=== PATIENT | female | born 1985 | race Two or more races ===

== ENCOUNTER 2017-04-26 19:44 | Emergency (ER) | payer OTHER ==
[2017-04-26 19:58] VITALS: BP 131/86; PULSE 91; TEMP 97.9; BMI 30.2
--- NOTE | 2017-04-26 22:30 | PDOC ---
History of Present Illness - General History Source: Patient Exam Limitations: No Limitations <Adalberto Ruiz - Last Filed: 04/26/17 22:43> <Josephine Lew - Last Filed: 04/26/17 23:57> - General Chief Complaint: Chest Pain Stated Complaint: ANXIETY Time Seen by Provider: 04/26/17 21:54 - History of Present Illness Initial Comments: 04/26/17 22:37 The patient is a 32 year old female, with no significant past medical history who presents to the emergency department with persistent chest pain/tightness, itchiness and headache since last night around 11:00 pm. She reports finishing a course of antibiotics and had some pruritus. Denies any angioedema and denies any obvious hives. She denies eating any new foods, using new body lotions, or using any new perfumes. She reports starting her course of antibiotics after using alum on her vagina and having some residual burning. She reports her chest tightness and headache had an acute onset while in the car last night. She notes her headache was a 9/10 in pain intensity at the time of its original onset. She notes report taking an Aleve before going to bed, but reports the next morning waking up with continued chest tightness and headaches. She denies recent fevers, chills, or dizziness. She denies recent nausea, vomit, diarrhea or constipation. She denies recent dysuria, frequency, urgency or hematuria. She denies recent shortness of breath. Allergies: NKA Past surgical history: Tubal Ligation Social history: Nonsmoker. Denies EtOH use and recreational drug use. (Adalberto Ruiz) Past History <Adalberto Ruiz - Last Filed: 04/26/17 22:43> - Past Medical History Anemia: No Asthma: No Cancer: No Cardiac Disorders: No CVA: No COPD: No CHF: No Dementia: No Diabetes: No GI Disorders: No Disorders: No HTN: No Hypercholesterolemia: No Liver Disease: No Psychiatric Problems: Yes (anxiety) Seizures: No Thyroid Disease: No - Suicide/Smoking/Psychosocial Hx Smoking History: Never smoked Have you smoked in the past 12 months: No Information on smoking cessation initiated: No Hx Alcohol Use: No Drug/Substance Use Hx: No Substance Use Type: None Hx Substance Use Treatment: No <Josephine Lew - Last Filed: 04/26/17 23:57> - Past Medical History Allergies/Adverse Reactions: Allergies Allergy/AdvReac Type Severity Reaction Status Date / Time No Known Drug Allergies Allergy Verified 11/14/13 13:00 Home Medications: Ambulatory Orders Isoniazid 300 mg PO DAILY 10/26/13 Pyridoxine HCl (Vitamin B6) [Pyridoxine HCl] 100 mg PO DAILY 10/27/13 Ibuprofen [Motrin -] 600 mg PO Q4H PRN #60 tablet 11/15/13 Cardiac Specific PMH - Complaint Specific PMHX Pacemaker: No <Josephine Lew - Last Filed: 04/26/17 23:57> Review of Systems - Review of Systems Able to Perform ROS?: Yes <Adalberto Ruiz - Last Filed: 04/26/17 22:43> <Josephine Lew - Last Filed: 04/26/17 23:57> - Review of Systems Comments:: 04/26/17 22:37 GENERAL/CONSTITUTIONAL: No fever or chills. No weakness. HEAD, EYES, EARS, NOSE AND THROAT: No change in vision. No ear pain or discharge. No sore throat. CARDIOVASCULAR: +chest pain No shortness of breath. RESPIRATORY: No cough, wheezing, or hemoptysis. GASTROINTESTINAL: No nausea, vomiting, diarrhea or constipation. GENITOURINARY: +vaginal burning (on antibiotics) No dysuria, frequency, or change in urination. MUSCULOSKELETAL: No joint or muscle swelling or pain. No neck or back pain. SKIN:+pruritus. No rash NEUROLOGIC: +headache No: vertigo, loss of consciousness, or change in strength/ sensation. ENDOCRINE: No increased thirst. No abnormal weight change. HEMATOLOGIC/LYMPHATIC: No anemia, easy bleeding, or history of blood clots. ALLERGIC/IMMUNOLOGIC: No hives or skin allergy. (Adalberto Ruiz) *Physical Exam <Adalberto Ruiz - Last Filed: 04/26/17 22:43> <Josephine Lew - Last Filed: 04/26/17 23:57> - Vital Signs Last Vital Signs Temp Pulse Resp BP Pulse Ox 97.9 F 91 H 20 131/86 100 04/26/17 19:54 04/26/17 19:54 04/26/17 19:54 04/26/17 19:54 04/26/17 19:54 - Physical Exam Comments: 04/26/17 22:43 GENERAL: Awake, alert, and fully oriented, in no acute distress HEAD: No signs of trauma EYES: PERRLA, EOMI, sclera anicteric, conjunctiva clear ENT: Auricles normal inspection, hearing grossly normal, nares patent, oropharynx clear without exudates. Moist mucosa NECK: Normal ROM, supple, no lymphadenopathy, JVD, or masses LUNGS: Breath sounds equal, clear to auscultation bilaterally. No wheezes, and no crackles HEART: Regular rate and rhythm, normal S1 and S2, no murmurs, rubs or gallops ABDOMEN: Soft, nontender, normoactive bowel sounds. No guarding, no rebound. No masses EXTREMITIES: Normal range of motion, no edema. No clubbing or cyanosis. No cords, erythema, or tenderness NEUROLOGICAL: Cranial nerves II through XII grossly intact. Normal speech, normal gait SKIN: Warm, Dry, normal turgor, no rashes or lesions noted. No obvious hives. (Adalberto Ruiz) Heart Score/ECG Review - Electrocardiogram EKG: Normal - Age Age: </= 45 - Risk Factors Based on the list above the patient has:: No risk factors known <Josephine Lew - Last Filed: 04/26/17 23:57> - Medications Given in the ED: ED Medications Discontinued Medications Generic Name Dose Route Start Last Admin Trade Name Freq PRN Reason Stop Dose Admin Acetaminophen 975 mg 04/26/17 22:42 04/26/17 23:04 Tylenol - PO 04/26/17 22:43 975 mg ONCE STA Administration Diphenhydramine HCl 25 mg 04/26/17 22:42 04/26/17 23:04 Benadryl - PO 04/26/17 22:43 25 mg ONCE ONE Administration Medical Decision Making <Adalberto Ruiz - Last Filed: 04/26/17 22:43> <Josephine Lwe - Last Filed: 04/26/17 23:57> - Medical Decision Making 04/26/17 23:52 50-year-old female who presented with 1 day of chest tightness, pruritus and mild headache. She has been stable vital signs and no significant past medical history. On exam, she has no focal neural deficits, her EKG is normal sinus rhythm. She denies any shortness of breath, nausea, vomiting, fever, chills, shortness of breath uvula midline,no edema,lungs no wheezing,no hives appreciable 04/26/17 23:55 (Josephine Lew) *DC/Admit/Observation/Transfer <Adalberto Ruiz - Last Filed: 04/26/17 22:43> <Josephine Lew - Last Filed: 04/26/17 23:57> Diagnosis at time of Disposition: Pruritus, Atypical chest pain - Discharge Dispostion Disposition: HOME Condition at time of disposition: Stable - Patient Instructions Printed Discharge Instructions: DI for Atypical Chest Pain, DI for Itching Additional Instructions: please followup with your regular physician - Attestations Scribe Attestion: 04/26/17 22:37 Documentation prepared by Adalberto Ruiz, acting as medical typist for Josephine Lew MD. (Adalberto Ruiz)
[2017-04-26] MEDS ORDERED: diphenhydrAMINE HCL 25 MG CAPSULE (FP) PO ONE ×3 (22:42→23:01)
[2017-04-26] MEDS ORDERED: ACETAMINOPHEN 500 MG TABLET (FP) PO STA (22:42)
[2017-04-26] MEDS ORDERED: ACETAMINOPHEN 325 MG TABLET (FP) ONE (23:00)
[2017-04-27] MEDS ORDERED: ALBUTEROL SO4 2.5/IPRATROPIUM 0.5 INH SOL 3 ML VIAL.NEB. NEB ONE (00:28)
--- NOTE | 2017-04-27 17:02 | EKG ---
Test Reason : Blood Pressure : / mmHG Vent. Rate : 071 BPM Atrial Rate : 071 BPM P-R Int : 162 ms QRS Dur : 076 ms QT Int : 392 ms P-R-T Axes : 066 058 051 degrees QTc Int : 425 ms NORMAL SINUS RHYTHM WITH SINUS ARRHYTHMIA NORMAL ECG NO PREVIOUS ECGS AVAILABLE Confirmed by RAPHAEL SHAH MD ([id number]) on 04/27/2017 5:02:01 PM Referred By: Confirmed By:RAPHAEL SHAH MD
== END 2017-04-27 00:36 | disposition home or self-care (01) ==
LOC: JER 19:44
DX: R07.89 Other chest pain (principal); L29.8 Other pruritus; F41.9 Anxiety disorder, unspecified
CPT/HCPCS: 93005; 93010; 99281-25